=== PATIENT | male | born 1945 | race Caucasian/White ===

== ENCOUNTER 2017-09-22 02:22 | Emergency (ER) | payer MEDICARE, OTHER ==
[~2017-09-22] VITALS: Ht 177.8 cm; Wt 90.7 kg
[2017-09-22] MEDS ORDERED: LOSARTAN POTAS100 MG PO (02:35)
[2017-09-22] MEDS ORDERED: SYNTHROID 0.1M0.1 MG PO (02:35)
[2017-09-22 02:52] LABS: HEMOGLOBIN 14.4 g/dL (14.1-18.0); LYMPH # 1.9 K/mm3 (0.7-4.5); LYMPH % 29.9 % (10-50)
--- OUTSIDE RECORDS SUMMARY | 2017-09-22 03:04 | External Medical Summary Rpt | CCD ---
Author Author , EVAN Organization EVAN Address Unknown Phone [email or web address] Purpose Continuity of Care Document - 09-22-2017 through 2016 Results Labs Lab Lab Date Result Refere Interp Status Commen Order Detail nces retati t Range on CBC w auto diff (09-22-2017 02:30) Automat = 0.1 0-0.2 complet ed 017 K/MM3 ed blood 02:30 basophi l count (count/ vo Baso % = 1.2 % 0.1-2.0 complet 017 ed 02:30 Automat = 0.3 0.0-0.4 complet ed 017 K/mm3 ed blood 02:30 eosinop hil count Automat = 4.0 % 0.1-12. complet ed 017 0 ed blood 02:30 eosinop hils/10 0 leukocy t Blood = 3.5 1.3-8.0 complet granulo 017 K/mm3 ed cytes 02:30 automat ed count (numb Granulo = 56.7 37.0-80 complet cyte 017 % .0 ed percent 02:30 age Blood = 44.8 42.0-52 complet hematoc 017 % .0 ed rit 02:30 (volume fractio n) Blood = 14.4 14.1-18 complet hemoglo 017 g/dL .0 ed bin 02:30 measure ment (mass/v olum Absolut = 1.9 0.7-4.5 complet e 017 K/mm3 ed lymphoc 02:30 yte count Lymphoc = 29.9 10-50 complet yte 017 % ed count, 02:30 blood, automat ed Mean = 29.6 27-31.2 complet corpusc 017 pg ed ular 02:30 hemoglo bin ([facility]) determ Automat = 32.1 31.8-35 complet ed 017 g/dl .4 ed erythro 02:30 cyte mean corpusc ular h Automat = 92.2 82.2-97 complet ed 017 fl .8 ed erythro 02:30 cyte mean corpusc ular v Absolut = 0.5 0.1-1.0 complet e 017 K/mm3 ed monocyt 02:30 e count [place] % = 8.1 % 1.7-9.3 complet 017 ed 02:30 Automat = 7.3 7.4-10. complet ed 017 fl 4 ed blood 02:30 platele t mean volume kristina Blood = 153 142-424 complet platele 017 K/mm3 ed t count 02:30 Red = 4.86 4.6-6.2 complet blood 017 M/mm3 ed cell 02:30 count Automat = 13.5 11.5-17 complet ed 017 % .5 ed erythro 02:30 cyte distrib ution width Blood = 6.2 4.8-10. complet leukocy 017 K/MM3 8 ed rafael 02:30 count (number /volume )
--- OUTSIDE RECORDS SUMMARY | 2017-09-22 03:04 | External Medical Summary Rpt ---
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 Vital Signs No data available for this section Problem List Condition Effective Status Health Informant Dates Status Back Active pain(Confirm ed) Bronchitis(C Active onfirmed) Cancer of Active colon(Confir med) Hard of Active hearing(Conf irmed) Hypertension Active (Confirmed) Impaired Active vision(Confi rmed) Skin Active cancer(Confi rmed) Thyroid Active disease(Conf irmed) Vertigo(Conf Active irmed) Allergies, Adverse Reactions, Alerts Substance Reaction Severity Status morphine hallucination Active penicillin Blisters Active Blisters sulfa drugs Blisters Active Blisters Medications No data available for this section Results No data available for this section Immunizations No data available for this section Procedures No data available for this section Social History Social History Response Type Smoking Status Never smoker Assessment and Plan No data available for this section Hospital Discharge Instructions No data available for this section
--- OUTSIDE RECORDS SUMMARY | 2017-09-22 03:04 | External Medical Summary Rpt | CCD ---
Author Author , EVAN Organization EVAN Address Unknown Phone [email or web address] Purpose Continuity of Care Document - 09-22-2017 [...] 017 K/mm3 ed monocyt 02:30 e count [facility] % = 8.1 % 1.7-9.3 complet 017 [...]
--- OUTSIDE RECORDS SUMMARY | 2017-09-22 03:04 | External Medical Summary Rpt | CCD ---
Author Author [facility] Organization [facility] Address Unknown Phone Unavailable Purpose Continuity of Care Document - through 2016
--- OUTSIDE RECORDS SUMMARY | 2017-09-22 03:04 | External Medical Summary Rpt ---
Author Author [facility] Organization [facility] Address Unknown Phone Unavailable Care Team Providers Care Pile Driver Operator Name Role Phone Lisseth ARREDONDO PCP [phone] Encounter [facility] Date(s): 10/24/16 - 10/30/16 [facility] [address] [place] [id number]- Discharge Disposition: OP Self Care or Home [...]
--- OUTSIDE RECORDS SUMMARY | 2017-09-22 03:04 | External Medical Summary Rpt | CCD ---
Author Author , ROLA Organization ROLA Address Unknown Phone [email or web address] Immunization Name Date Rout CVX Reac Dose Comm Prov Is Faci e tion ent ider Refu lity Give sed n Infl 10-2 135 999 Hist D203 No D203 uenz 5-20 oric 45 45 a, 16 al High Info rmat Dose ion - Sour ce Unsp ecif ied
--- OUTSIDE RECORDS SUMMARY | 2017-09-22 03:04 | External Medical Summary Rpt | CCD ---
Author Author , ROLA Organization ROLA Address Unknown Phone [email or web address] [email or web address] Name Date Rout CVX Reac Dose Comm Prov Is Faci e tion ent ider Refu lity Give sed n Infl 10-2 135 999 Hist D203 No D203 uenz 5-20 oric 45 45 a, 16 al High Info rmat Dose ion - Sour ce Unsp ecif ied
--- OUTSIDE RECORDS SUMMARY | 2017-09-22 03:04 | External Medical Summary Rpt ---
Author Author [facility] [employer], [employer] Organization [employer] Address Unknown Phone Unavailable
[2017-09-22 03:15] LABS: BUN 13 mg/dL (7-18); GFR (ESTIMATED) 50 ML/MIN (>60)
--- NOTE | 2017-09-22 04:11 | Emergency Room Report ---
History of Present Illness Time Seen by MD Morales Presenting Problem in Triage Pt arrived:Wheelchair Presenting Problem:C/O CHILLS AND DULL PAIN TO CHEST/SHOULDER WHEN TAKING DEEP BREATH Onset of symptoms date/time:09/22/17 or onset unknown for: Treatment Prior to Arrival: SILVER BUFFER Provided by: Sepsis Risk Assessment: Temp: 99.2 B/P: 164/74 MAP: 110 Pulse: 72 Resp: 22 Recent fever? N Clinical Suspician of Infection? N Mental Status: 1 - Regular (Normal Baseline) Sepsis Risk:Low Sepsis Risk Have you (or family members/close friends) recently traveled outside the [place]? N If Yes, where/when: Have you had exposure to infectious disease within the past month? N TB? Other? Specify: Source patient, RN notes reviewed, family, old records Exam Limitations no limitations Comment pt with chest pain which started this am with chills and pain inc with insp- no hemoptysis Cardiac Chest Pain Chest pain indicative of cardiac No Timing/Duration this evening Severity moderate ALLERGIES Coded Allergies: Penicillins (09/22/17) Home Medications Reported Medications Levothyroxine Sodium (Synthroid 0.1MG) 0.1 MG PO DAILY Losartan Potassium (Losartan 100MG) 100 MG PO DAILY History Medical History General CAD? No Angina: Yes IN: No Hypertension? Yes Hyperlipidemia? No CHF? No DVT? No PE? No COPD? No Asthma? No Anemia? No GERD? No Gastric ulcers? No GI Bleed? No Hernia? No Thyroid Problems? No Hypothyroidism? Yes CVA? No Seizures? No Diabetes? No Renal Insuffiency? No End Stage Renal Disease? No UTI? No Stones? Yes BPH? No GB Disease: Yes Nephritic Syndrome? No Asplenia? No Hepatitis? No Sickle Cell Disease? No Arthritis? No Migraines? No Cataracts? No Glaucoma? Yes MRSA? No HIV? No TB? No Anxiety? No Depression? No Cancer? Yes Site: COLON More? No Immunization Hx DT/Tetanus > 10 YRS Surgical Hx Previous Surgery?Y HERNIA SURGERY X3 COLON RESECTION Family History Family Hx Diabetes No CAD Yes Hypertension Yes Hyperlipidemia No Cancer No TB No Social History Smoking Hx Smoker: Never Smoker Tobacco: No Are you/the child exposed to second-hand smoke: No Alcohol Alcohol: No Drugs none Review of Systems All Other Systems Reviewed and Negative Constitutional see HPI, chills, denies fever, other Eyes denies drainage ENT denies: ear discharge, epistaxis, throat pain. Respiratory see HPI, cough, denies shortness of breath, denies wheezing Cardiovascular see HPI, chest pain, denies palpitations, denies syncope Gastrointestinal denies abdominal pain, denies vomiting Genitourinary denies: dysuria, frequency, hesitancy, hematuria. Musculoskeletal denies back pain, denies joint pain, denies joint swelling, denies neck pain Skin denies rash Psychiatric/Neurological denies headache, denies seizure Physical Exam Vital Signs Vital Signs Date Time Temp Pulse Resp B/P Pulse O2 O2 Flow FiO2 Ox Delivery Rate 09/22 0459 99.1 68 18 153/80 97 09/22 0306 99.2 72 22 164/74 95 09/22 0224 98.1 72 18 180/75 97 - WBC >12,000 or <4,000 or 10% bands? 2 or more SIRS Criteria Met? B/P:153/80 MAP:110 Creatinine >2.0? UA output<0.5ml/kg/hr for 2 hrs? Platelet count >100,000? Lactate >2.0mmol/1? INR >1.2 or PTT > than 60 sec? Evidence of Organ Dysfunction? Provider documented clinical suspician of infection? N Sepsis Criteria Count: 0 Sepsis Risk: Low Sepsis Risk General Appearance no apparent distress Eye Exam - bilateral eye PERRL, bilateral eye EOMI Ear, Nose, Throat normal ENT inspection Neck supple Respiratory Status No: respiratory distress, tender on palpation. Lung Sounds bilateral: lungs clear. 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 No Results/Orders Laboratory Tests 09/22/17 0545: Troponin I < 0.02 09/22/17 0230: Lactic Acid 1.4 09/22/17 0230: Sodium 144, Potassium 3.7, Chloride 106, Carbon Dioxide 30, BUN 13, Creatinine 1.4 H, Estimated Creat Clear 62, Estimated GFR (MDRD) 50, Glucose 109 H, Calcium 8.6, Total Bilirubin 0.4, AST 30, ALT 39, Alkaline Phosphatase 106, Creatine Kinase 99, CK-MB (CK-2) Rel Index 1.2, CK and CKMB Interp 1.2, Troponin I < 0.02, Total Protein 7.9, Albumin 3.8, Globulin 4.1 H, Albumin/Globulin Ratio 0.9 L, D-Dimer 526 *H, WBC 6.2, RBC 4.86, Hgb 14.4, Hct 44.8, MCV 92.2, RDW 13.5, Plt Count 153, MPV 7.3 L, Gran % 56.7, Gran # 3.5, Lymphocytes % 29.9 , Monocytes % 8.1, Eosinophils % 4.0, Basophils % 1.2, Lymphocytes # 1.9, Monocytes # 0.5, Eosinophils # 0.3, Basophils # 0.1, PUBS MCHC 32.1, MCH 29.6 Current Medication Orders Sig/Dusty Start time Last Medication Dose Route Stop Time Status Admin Cephalexin 500 MG ONCE ONE 09/22 0615 r Monohydrate PO 09/22 0616 Iopamidol 75 ML ONCE ONE 09/22 0545 UNV 09/22 IV 09/22 0546 0534 Sodium Chloride 10 ML PRN PRN 09/22 0545 UNV 09/22 IV 09/22 0703 0534 Aspirin 324 MG ONCE ONE 09/22 0245 DC 09/22 PO 09/22 0246 0242 Sodium Chloride 10 ML PRN PRN 09/22 0245 AC IV 09/23 0232 Aspirin 0 .STK-MED ONE 09/22 0239 DC .ROUTE Orders Procedure Date/time Status DIET-NOTHING BY MOUTH 09/22 B Active TROPONIN I 09/22 0536 Complete CTA-CHEST 09/22 0435 Active D-DIMER 09/[address] SCAN REQ 09/22 041 Active CULTURE, BLOOD 09/22 0303 Active LACTIC ACID 09/22 0303 Complete ELECTROCARDIOGRAM REQUEST 09/22 023 Active CHEST-PORTABLE 09/22 023 Active IV SALINE LOCK 09/22 023 Active COMPLETE METABOLIC PANEL 09/22 232 Complete CBC WITH AUTO DIFF 09/22 232 Complete CARDIAC ENZYMES 09/22 232 Complete 12 LEAD EKG-ISAI (INITIAL) 09/22 UNK Active CM/EKG CM/plumbing manager Rhythm Normal Sinus Rhythm EKG non-spec. ST/Twave chgs XRAY/CT/US XRAY/CT/US 1 XRAY chest XR interpretation by reviewed by me Xray Results normal/NAD XRAY/CT/US [address] interpretation by discussed w/radiologist Time results known: 527 CT Results normal/NAD Departure Departure Time of Disposition 527 Disposition DC Home or Self Care(routine) Clinical Impression Primary Impression: Chest pain Qualifiers: Chest pain type: unspecified Qualified Code: R07.9 - Chest pain, unspecified Condition STABLE Referrals Raffi HARRIS,Dewayne (Family) Patient Instructions DI for Atypical Chest Pain Additional Instructions see pcp for follow up Discharge Counseling Counseled pt/family regarding diagnosis, test results, medications/RX, follow up needs Prescriptions Current Visit Scripts CEPHALEXIN (Keflex 500MG Capsule) 500 MG PO Q8H #21 CAP ED Critical Care Critical Care No at 0613
[2017-09-22] MEDS ORDERED: KEFLEX 500MG.500 MG PO (06:12)
[2017-09-22 06:25] VITALS: BP 156/79
--- NOTE | 2017-09-22 07:14 | RADIOLOGY REPORT PS360 ---
CTA-CHEST HISTORY: CHEST PAIN WITH INSPIRATION, history colon cancer ORDERING PHYSICIAN: Taya Chahal MD PATIENT AGE: 72 years TECHNIQUE: Helical acquisition obtained following the bolus administration of 60 mL of Isovue 370 followed by a saline bolus. Axial, sagittal, and coronal reformatted images are generated and reviewed. COMPARISON: None FINDINGS: PULMONARY ARTERIES:No pulmonary embolus evident. AORTA:No acute findings, no evidence of aneurysm LUNGS:Trace dependent atelectatic changes in the lungs. Scattered calcified granulomas PLEURAL SPACES:No significant effusion. No evidence of pneumothorax. HEART:Unremarkable. Normal heart size. No significant pericardial effusion. MEDIASTINAL AND HILAR STRUCTURES:No mediastinal or hilar mass evident. No dominant adenopathy. BONY STRUCTURES:No acute bony abnormalities apparent. Thoracic spondylosis LYMPH NODES:Calcified mediastinal lymph nodes UPPER ABDOMEN:Mild splenomegaly at 14 cm Nonobstructing right 5 mm renal calculus IMPRESSION: 1. No evidence of pulmonary. 2. Right nephrolithiasis. 3. Old granulomatous disease. 4. Mild splenomegaly
--- NOTE | 2017-09-22 07:15 | RADIOLOGY REPORT PS360 ---
CHEST-PORTABLE HISTORY: sob ORDERING PHYSICIAN: Taya Chahal MD PATIENT AGE: 72 years COMPARISON: None available FINDINGS: The cardiomediastinal silhouette and pulmonary vascularity are within normal limits. The lungs are clear without infiltrates, suspicious nodules, or pleural effusions. No acute bony abnormalities. IMPRESSION: Negative chest, no acute finding
== END 2017-09-22 06:26 | disposition home or self-care (01) ==
LOC: ER 02:22
PROVIDERS: Emergency Medicine
DX: R07.9 Chest pain, unspecified (principal); Z88.0 Allergy status to penicillin; I10 Essential (primary) hypertension; E03.9 Hypothyroidism, unspecified
CPT/HCPCS: Q9967